=== PATIENT | male | born 1985 | race Caucasian/White ===

== ENCOUNTER 2025-09-06 02:54 | Emergency (ER) | payer MEDICAID, OTHER ==
[~2025-09-06] VITALS: Ht 190.5 cm; Wt 85.0 kg
[2025-09-06 03:01] VITALS: BP 128/72; PULSE 61; RESP 16; TEMP 98; O2SAT 100
[2025-09-06] MEDS ORDERED: ACETAMINOPHEN 500MG TABLET PO ONE (03:45)
== END 2025-09-06 04:08 | disposition left against medical advice (07) ==
LOC: ER 02:54
DX: R51.9 Headache, unspecified (principal); Z88.6 Allergy status to analgesic agent
CPT/HCPCS: 99283